=== PATIENT | female | born 1980 | race African-American/Black ===

== ENCOUNTER 2018-10-05 13:33 | Emergency (ER) | payer SELFPAY ==
[~2018-10-05] VITALS: Ht 170.2 cm; Wt 95.0 kg
[2018-10-05 17:45] VITALS: BP 128/78
[2018-10-05] MEDS ORDERED: BACITRACIN ZINC OINT UDPKT TOP ONE (17:45)
== END 2018-10-05 18:16 | disposition home or self-care (01) ==
LOC: ER 13:33
DX: S61.213A Laceration without foreign body of left middle finger without damage to nail, initial encounter (principal); W26.8XXA Contact with other sharp object(s), not elsewhere classified, initial encounter; Y93.89 Activity, other specified; Y92.89 Other specified places as the place of occurrence of the external cause; R03.0 Elevated blood-pressure reading, without diagnosis of hypertension
CPT/HCPCS: 12001; 99283; Z7610

== ENCOUNTER 2019-05-17 10:11 | Emergency (ER) | payer MEDICAID ==
[~2019-05-17] VITALS: Ht 170.2 cm; Wt 100.0 kg
[2019-05-17] MEDS ORDERED: FENTANYL CITRATE/PF 50MCG/ML 2ML VIAL IM ONE (11:30)
[2019-05-17] MEDS ORDERED: LIDOCAINE HCL/PF 1% 10 MG/ML 5ML VIAL IJ ONE (11:30)
[2019-05-17] MEDS ORDERED: BACITRACIN ZINC OINT UDPKT TOP ONE (11:30)
[2019-05-17] MEDS ORDERED: BACITRACIN 15GM TUBE TOP ONE (11:47)
[2019-05-17 12:25] VITALS: BP 120/73
== END 2019-05-17 13:06 | disposition home or self-care (01) ==
LOC: ER 10:55
DX: N76.4 Abscess of vulva (principal)
CPT/HCPCS: 56420; 96372; 99283; J3010; J3490

== ENCOUNTER 2019-12-08 03:13 | Observation (INO) | payer MEDICAID ==
[~2019-12-08] VITALS: Ht 170.2 cm; Wt 106.6 kg
[2019-12-08] MEDS ORDERED: LACTATED RINGERS 1,000 ML IV SCH ×2 (03:28→04:15)
[2019-12-08] MEDS ORDERED: MISOPROSTOL 200MCG TABLET RC PRN (03:30)
[2019-12-08] MEDS ORDERED: TRANEXAMIC ACID 1,000 MG in SODIUM CHLORIDE 0.9% 50 ML IV PRN (03:30)
[2019-12-08] MEDS ORDERED: METHYLERGONOVINE MALEATE 0.2 MG/ML IM PRN ×2 (03:30)
[2019-12-08] MEDS ORDERED: LOPERAMIDE HCL 2MG CAPSULE PO PRN ×2 (03:30→04:15)
[2019-12-08] MEDS ORDERED: MISOPROSTOL 100MCG TABLET VG SCH (03:30)
[2019-12-08] MEDS ORDERED: LIDOCAINE HCL 1% 20ML VIAL (Pyxis) INJ INFIL SCH (03:30)
[2019-12-08] MEDS ORDERED: CARBOPROST TROMETHAMINE 250 MCG/ML AMPUL IM PRN ×2 (03:30)
[2019-12-08 04:37] LABS: CHLORIDE 107 mEq/L (98-107)
[2019-12-08 04:40] LABS: *AMPHETAMINES SCREEN URINE NEGATIVE (NEGATIVE); *BARBITURATES SCREEN URINE NEGATIVE (NEGATIVE); *BENZODIAZEPINES SCREEN URINE NEGATIVE (NEGATIVE); *COCAINE SCREEN URINE NEGATIVE (NEGATIVE)
[2019-12-08 04:41] LABS: CANNABINOID URINE SCREEN NEGATIVE (NEGATIVE); METHADONE URINE SCREEN NEGATIVE (NEGATIVE); OPIATES URINE SCREEN NEGATIVE (NEGATIVE); PHENCYCLIDINE URINE SCREEN NEGATIVE (NEGATIVE)
[2019-12-08 04:43] LABS: CLARITY URINE CLEAR (CLEAR); COLOR URINE YELLOW (YELLOW); KETONES URINE TRACE (NEGATIVE); LEUKOCYTE ESTERASE URINE NEGATIVE (NEGATIVE); NITRITE URINE NEGATIVE (NEGATIVE); OCCULT BLOOD URINE 2+ (NEGATIVE); PROTEIN URINE TRACE (NEGATIVE); SPECIFIC GRAVITY URINE 1.014 (1.005-1.030); UROBILINOGEN URINE 0.2 E.U./dL (0.2-1.0)
[2019-12-08 04:44] LABS: HEMATOCRIT. 33.9 % (36.0-48.0); HEMOGLOBIN. 11.7 g/dL (12.0-16.0); MEAN CORPUSCULAR HEMOGLOBIN 33.8 pg (28.0-32.0); MEAN CORPUSCULAR VOLUME 97.8 fL (81.0-99.0); MEAN PLATELET VOLUME 9.6 fl (7.4-10.4); PLATELET 244 x1000/uL (130-400); RED BLOOD CELL COUNT 3.46 mill/uL (4.2-5.4)
[2019-12-08] MEDS ORDERED: NITROGLYCERIN 50MG PREMIX 250 ML IV PRN (04:45)
[2019-12-08] MEDS ORDERED: MIDAZOLAM HCL 2 MG/2 ML VIAL ONE (04:52)
[2019-12-08] MEDS ORDERED: FENTANYL CITRATE/PF 50MCG/ML 2ML VIAL ONE (04:52)
[2019-12-08 04:55] LABS: D-DIMER 3.53 mg/L FEU (<0.50); INR 0.9; PARTIAL THROMBOPLASTIN TIME 26.8 sec (23.4-31.0); PROTHROMBIN TIME 10.1 sec (9.6-11.0)
[2019-12-08] MEDS ORDERED: SODIUM CHLORIDE 0.9% 10ML VIAL ONE ×2 (04:56→04:58)
[2019-12-08 05:05] LABS: HEPATITIS B SURFACE ANTIGEN NEGATIVE
[2019-12-08] MEDS ORDERED: DEXT 5%/LR + PITOCIN 20UNITS/L 1,000 ML IV SCH (05:42)
[2019-12-08] MEDS ORDERED: IBUPROFEN 800MG TABLET PO PRN (05:45)
[2019-12-08] MEDS ORDERED: RHO(D) IMMUNE GLOBULIN 300 MCG/SYR IM PRN (05:45)
[2019-12-08] MEDS ORDERED: IBUPROFEN 400MG TABLET PO PRN (05:45)
[2019-12-08] MEDS ORDERED: AMPICILLIN 2,000 MG in SODIUM CHLORIDE 0.9% 100 ML IV SCH (06:00)
[2019-12-08] MEDS ORDERED: GENTAMICIN SULFATE 160 MG in SODIUM CHLORIDE 0.9% 100 ML IV SCH (06:30)
[2019-12-08 07:00] LABS: PLATELET ESTIMATE NORMAL
[2019-12-08] MEDS ORDERED: AMPICILLIN 1,000 MG in SODIUM CHLORIDE 0.9% 50 ML IV SCH (12:00)
== END 2019-12-08 07:10 | disposition left against medical advice (07) ==
LOC: 8 EST LDRP 03:13
PROVIDERS: ADMIT Obstetrics & Gynecology; ATTEND Obstetrics & Gynecology
DX: O90.89 Other complications of the puerperium, not elsewhere classified (principal); O72.0 Third-stage hemorrhage; O73.0 Retained placenta without hemorrhage; Z3A.40 40 weeks gestation of pregnancy; Z79.899 Other long term (current) drug therapy; Z37.0 Single live birth
CPT/HCPCS: 36415; 80053; 80305; 81003; 84550; 85025; 85379; 85384; 85610; 85730; 86592; 86703; 86762; 86850; 86900; 86901; 87070; 87075; 87205; 87340; 96365; 99281; G0378; J0290; J1580; J2590; J7050; 96360; 96361; J2250; J3010